=== PATIENT | female | born 1945 | race Caucasian/White ===

== ENCOUNTER 2016-07-04 14:49 | Inpatient (IN) | payer MEDICARE, OTHER ==
[~2016-07-04] VITALS: Ht 172.7 cm; Wt 39.7 kg
[2016-07-04 16:02] LABS: BASOPHIL 0.1 % (0-2); EOSINOPHIL 0.2 % (0-7); HCT 38.9 % (37.0-47.0); HGB 12.8 g/dl (12.5-16.0); LYMPHOCYTE 5.9 % (15-48); MCH 34.4 pg (25.0-31.0); MCHC 32.9 g/dL (32.0-36.0); MCV 104.6 fL (78.0-100.0); MONOCYTE 3.3 % (0-12); MPV 9.6 fL (6.0-9.5); NEUTROPHIL 90.5 % (41-80); PLT 243 K/uL (150-400); RBC 3.72 M/uL (4.20-5.40); RDW 12.9 % (11.5-14.0); WBC 9.3 K/uL (4.0-10.5)
[2016-07-04 16:23] LABS: ALBUMIN 3.9 g/dL (3.4-4.8); BILIRUBIN - TOTAL 0.5 mg/dL (0.1-1.0); CREATININE 0.7 mg/dL (0.5-1.0); GLOBULIN (CALCULATION) 2.9 g/dL (2.2-4.2); POTASSIUM 3.6 mmol/L (3.5-5.1); TOTAL PROTEIN 6.8 g/dL (6.4-8.3)
[2016-07-05 05:26] LABS: BASOPHIL 0 % (0-2); EOSINOPHIL 0 % (0-7); HCT 38.4 % (37.0-47.0); HGB 12.4 g/dl (12.5-16.0); MCHC 32.3 g/dL (32.0-36.0); MCV 105.2 fL (78.0-100.0); MONOCYTE 2.7 % (0-12); MPV 10.2 fL (6.0-9.5); NEUTROPHIL 93.3 % (41-80); PLT 255 K/uL (150-400); RBC 3.65 M/uL (4.20-5.40); RDW 13.1 % (11.5-14.0)
[2016-07-05 05:46] LABS: ALBUMIN 3.6 g/dL (3.4-4.8); BILIRUBIN - TOTAL 0.4 mg/dL (0.1-1.0); CREATININE 0.6 mg/dL (0.5-1.0); GLOBULIN (CALCULATION) 2.8 g/dL (2.2-4.2); POTASSIUM 5.3 mmol/L (3.5-5.1); TOTAL PROTEIN 6.4 g/dL (6.4-8.3)
[2016-07-06 04:41] LABS: HCT 33.3 % (37.0-47.0); HGB 10.5 g/dl (12.5-16.0); MCH 33.3 pg (25.0-31.0); MCHC 31.5 g/dL (32.0-36.0); MCV 105.7 fL (78.0-100.0); MPV 9.8 fL (6.0-9.5); RBC 3.15 M/uL (4.20-5.40); RDW 12.8 % (11.5-14.0); WBC 4.1 K/uL (4.0-10.5)
[2016-07-06 04:57] LABS: CREATININE 0.5 mg/dL (0.5-1.0); POTASSIUM 4.4 mmol/L (3.5-5.1)
--- NOTE | 2016-07-07 10:32 | NUR ---
Reason for assessment: MD consult re: protein calorie malnutrition + low BMI Diagnosis: 70 y/o female admitted with SOB/pnemonia PMH: COPD on home O2, lung mass, anxiety, depression, hypothyroidism, appy Ht: 68", Wt: 86-94 lbs (patient states 89 lbs), BMI: 13.5 (underweight) Out of range labs: glucose 144 (is on IV steroids, no hx of diabetes) Meds: Synthroid, IV Levaquin, Pantoprazole, IV steroids, Zofran prn Skin: No issues documented GI: Last BM 07/05, [facility]NL Weight history: 120 lbs (highest weight; 1 year ago), 31 lb weight loss (26% body weight in 1 year) Diet history: Eats 3 meals per day + 2-3 ice cream popsicles a night, snacks as she desires, however still not meeting increased nutrient needs Estimated nutrition needs: Increased based on high metabolic demand, COPD and underweight status, need for weight gain Current diet order: Regular/double portions + Ensure Clear QID (as of 07/06 per MD, was previously on low sodium diet) Assessment: Chart reviewed, events noted. See reason for assessment, admitting dx and PMH as stated above. The patient is on 2L nasal cannula, labored breathing with exertion. See weight/diet history as stated above. She is clinically underweight and has increased nutrient needs that are not being met although her PO intake is decent (~75% of meals TID). She is requiring oral supplements, likes Ensure Clear which is currently ordered, states regular Ensure gives her diarrhea. She reports decreased appetite and 31 lb weight loss over the past year; she qualifies for severe protein calorie malnutrition based on her weight loss and reduced oral intake related to chronic illness. Upon physical exam I noted hollow oribtals with dark circles, loss of fat over triceps and protrusion of clavicle. Also noted muscle loss with depression of temporal, buccal and pectoralis and interosseous muscle wasting. RD explained malnutrition and increased nutrient needs to the patient and encouraged adequate kcal/protein intake, educating on protein and calorie rich foods. Patient requesting salt with meals which she will now receive since her diet has been changed to regular. Could also benefit from high calorie/high protein diet if available here at [facility]. See RD recs below, will follow up as available. Nutrition dx: Severe protein calorie malnutrition r/t chronic illness AEB 26% body weight loss in 1 year, prolonged decreased oral intake < 75% energy need for > 1 month, severe muscle/fat wasting, BMI 13.5. Intervention: Regular diet/double portions, Ensure Clear QID Goals: 1. Oral intake > 75% of meals/supplements. 2. Gradual weight gain towards a healthy BMI range. Monitor: Per protocol, criteria to determine if above goals met Recommendations: 1. Continue regular diet/double portions. Patient could benefit from high calorie/high protein diet instead if available here at [facility]. Appreciate staff/family to encourage 3 meals and 3 snacks per day + supplements. 2. Will send Ensure Clear (available in apple or mixed lassiter) with meals and at bedtime. Please encourage; each Ensure Clear will provide 200 calories and 7g of protein to promote weight gain. 3. Please weigh q 3 days for monitoring purposes, as the patient is underweight. 4. Severe protein calorie malnutrition diagnosed (see assessment above). RD will follow-up as available Moderate nutrition risk Hermelinda Hopkins RD, JASON
[2016-07-08 05:05] LABS: HCT 36.4 % (37.0-47.0); HGB 11.4 g/dl (12.5-16.0); MCHC 31.3 g/dL (32.0-36.0); MCV 105.5 fL (78.0-100.0); MPV 9.6 fL (6.0-9.5); RBC 3.45 M/uL (4.20-5.40); RDW 12.8 % (11.5-14.0); WBC 4.3 K/uL (4.0-10.5)
[2016-07-08 05:23] LABS: CREATININE 0.5 mg/dL (0.5-1.0); POTASSIUM 3.9 mmol/L (3.5-5.1)
[2016-07-09 06:21] LABS: CREATININE 0.5 mg/dL (0.5-1.0)
[2016-07-10 06:04] LABS: CREATININE 0.4 mg/dL (0.5-1.0); POTASSIUM 3.4 mmol/L (3.5-5.1)
[2016-07-11 06:31] LABS: CREATININE 0.5 mg/dL (0.5-1.0); POTASSIUM 5.1 mmol/L (3.5-5.1)
[2016-07-11] MEDS ORDERED: XANAX0.5 MG PO (13:46)
[2016-07-11] MEDS ORDERED: SYMBICORT 16010.2 GM INH (13:46)
[2016-07-11] MEDS ORDERED: SYNTHROID88 MCG PO (13:47)
[2016-07-11] MEDS ORDERED: DUONEB 2.5-0.5M1 AMP NEB (13:48)
[2016-07-11] MEDS ORDERED: COMBIVENT RESPIM4 GM INH (13:48)
[2016-07-11] MEDS ORDERED: LEXAPRO20 MG PO (13:48)
[2016-07-11] MEDS ORDERED: LEVAQUIN500 MG PO (13:49)
[2016-07-11] MEDS ORDERED: NYSTATIN SUSP1 ML/ML SSW (13:49)
[2016-07-11] MEDS ORDERED: MUCINEX 600MG600 MG PO (13:49)
[2016-07-11] MEDS ORDERED: PREDNISONE 10MG10 MG PO (13:51)
== END 2016-07-11 17:08 | disposition home health service (06) | DRG 871 ==
LOC: FER 14:49 → FICU 19:20 → FMS 19:20 → FICU 07-05 05:41 → FTCU 07-05 15:07 → FMS 07-07 13:10
PROVIDERS: Emergency Medicine; Internal Medicine; ADMIT Internal Medicine
DX: A41.9 Sepsis, unspecified organism (principal); J96.21 Acute and chronic respiratory failure with hypoxia; E46 Unspecified protein-calorie malnutrition; J18.9 Pneumonia, unspecified organism; R64 Cachexia; Z99.81 Dependence on supplemental oxygen; J96.22 Acute and chronic respiratory failure with hypercapnia; J44.0 Chronic obstructive pulmonary disease with (acute) lower respiratory infection; J44.1 Chronic obstructive pulmonary disease with (acute) exacerbation; F32.9 Major depressive disorder, single episode, unspecified; F41.9 Anxiety disorder, unspecified; E03.9 Hypothyroidism, unspecified; Z90.710 Acquired absence of both cervix and uterus; Z87.891 Personal history of nicotine dependence
CPT/HCPCS: 36415; 36600; 71020; 80048; 80053; 82803; 83605; 83880; 84443; 84484; 85025; 87040; 87449; 93005; 94010; 94640; 94660; 94667; 94668; 97110; 97116; 97162; 97166; 97530; 97530-GP; 97535; C9113; J1940; J1956; J2270; J2405; J2930